=== PATIENT | male | born 1965 | race Caucasian/White ===

== ENCOUNTER 2018-01-25 00:48 | Emergency (ER) | payer SELFPAY ==
[~2018-01-25] VITALS: Ht 180.3 cm; Wt 106.6 kg
[2018-01-25 01:05] VITALS: BP_SYST 149
[2018-01-25] MEDS ORDERED: KETOROLAC TROMETHAMINE 60 MG/2 ML VIAL IM ONE (01:30)
[2018-01-25 01:50] VITALS: BP_SYST 141
== END 2018-01-25 01:50 | disposition home or self-care (01) ==
LOC: SED 00:48
DX: M25.511 Pain in right shoulder (principal); F17.210 Nicotine dependence, cigarettes, uncomplicated; Z88.0 Allergy status to penicillin; Z88.1 Allergy status to other antibiotic agents
CPT/HCPCS: 96372; 99283; J1885

== ENCOUNTER 2018-11-06 16:35 | Emergency (ER) | payer OTHER ==
[~2018-11-06] VITALS: Ht 177.8 cm; Wt 104.3 kg
[2018-11-06 16:48] VITALS: BP_SYST 129
--- NOTE | 2018-11-06 16:55 | NUR ---
Placed in room 6 . Placed on billet sawyer, blood pressure machine and pulse oximeter. To gown for exam. Side rails up. Report given to Mireya FERMIN.
[2018-11-06] MEDS ORDERED: NACL 0.9% 1,000 ML IV ONE ×2 (17:00→18:45)
--- NOTE | 2018-11-06 17:05 | NUR ---
Patient presented to ER with c/muscle crampling in chest. Patient A&Ox4, skin pink, respirations equal bilat, pain 4/10, denies N/V/D. Patient states he has muscle cramping chest, thigh, arms staarting yesterday, pt states he works in [place] in very high heat and may be suffering heat exhaustion. Patient states he drove from [place] today.
--- NOTE | 2018-11-06 17:15 | NUR ---
# 20 gauge angiocath placed to right ac . Use of asceptic technique. Opsite placed over site. Blood return noted. Blood for lab drawn from site. Flushed with 10 cc of normal saline. No evidence of infiltration noted. Patient tolerated well.
[2018-11-06 17:25] LABS: MEAN CORPUSCULAR VOLUME 92 fL (79.0-98.0)
--- NOTE | 2018-11-06 17:30 | NUR ---
Radiology at bedside for poertable x-ray
[2018-11-06 17:31] LABS: BASOPHILS # (AUTO) 0.1 K/uL (0.0-0.2); BASOPHILS % (AUTO) 0.9 % (0.0-2.0); EOSINOPHILS # (AUTO) 0.3 K/uL (0.0-0.4); EOSINOPHILS % (AUTO) 3.2 % (0.0-4.0); HEMATOCRIT 49.8 % (36-54); HEMOGLOBIN 17.4 g/dL (14.0-18.0); LYMPHOCYTES # (AUTO) 2.7 K/uL (1.0-5.5); LYMPHOCYTES % (AUTO) 33.1 % (20.5-51.5); MEAN CORPUSCULAR HEMOGLOBIN 32 pg (27-31); MEAN CORPUSCULAR HGB CONC 35 % (32-36); MONOCYTES # (AUTO) 0.7 K/uL (0.0-1.0); MONOCYTES % (AUTO) 8.8 % (1.7-9.3); NEUTROPHILS # (AUTO) 4.5 K/uL (1.8-7.7); PLATELET COUNT (AUTO) 278 K/uL (130-430); RED BLOOD CELL COUNT(AUTO) 5.41 MIL/uL (4.2-6.2); RED CELL DISTRIBUTION WIDTH 12.8 % (9.0-15.0); WHITE BLOOD COUNT (AUTO) 8.3 K/uL (4.8-10.8)
[2018-11-06 17:36] LABS: CREATININE 1.42 mg/dL (0.55-1.30); POTASSIUM 3.6 mmol/L (3.5-5.1)
[2018-11-06 17:41] LABS: ALBUMIN 4.9 g/dL (3.4-4.8); TOTAL BILIRUBIN 0.5 mg/dL (0.0-1.0)
[2018-11-06 18:08] LABS: CKMB RELATIVE INDEX 0.8 (0.0-2.9); CREATINE KINASE MB 5.5 ng/mL (0-3.6)
--- NOTE | 2018-11-06 18:25 | NUR ---
ER Dr. Goncalves at bedside examining patient.
--- NOTE | 2018-11-06 18:30 | NUR ---
Medicated per MD orders. IVF infusing with no s/s of infiltration at this time. Will cont to monitor
[2018-11-06 19:20] VITALS: BP_SYST 129
--- NOTE | 2018-11-06 19:20 | NUR ---
Patient given written and verbal discharge instructions and verbalizes understanding. ER MD discussed with patient the results and treatment provided. Patient in stable condition. ID arm band removed. IV catheter removed intact and dressing applied, no active bleeding. Rx of Motrin given. Patient educated on pain management and to follow up with PMD. Pain Scale 0/10. Opportunity for questions provided and answered. Medication side effect fact sheet provided.
== END 2018-11-06 19:20 | disposition home or self-care (01) ==
LOC: SED 16:35
DX: E86.0 Dehydration (principal); N17.9 Acute kidney failure, unspecified; J45.909 Unspecified asthma, uncomplicated; F17.210 Nicotine dependence, cigarettes, uncomplicated; R03.0 Elevated blood-pressure reading, without diagnosis of hypertension; Z88.0 Allergy status to penicillin; Z88.1 Allergy status to other antibiotic agents
CPT/HCPCS: 36415; 71045; 80053; 81002; 82550; 82553; 84484; 85025; 93005; 96360; 96361; 99284; J7030

== ENCOUNTER 2020-01-16 12:59 | Emergency (ER) | payer OTHER ==
[~2020-01-16] VITALS: Ht 175.3 cm; Wt 110.2 kg
[2020-01-16 13:08] VITALS: BP_SYST 154
--- NOTE | 2020-01-16 13:13 | NUR ---
Patient to ER bed 7 to gown for evaluation. Side rails up. Report given to ZANDER Chahal.
--- NOTE | 2020-01-16 13:14 | NUR ---
Patient came from home for evaluation of left flank pain and dark,foul urine. No other complaints at this time.
--- NOTE | 2020-01-16 13:15 | NUR ---
ER at bedside examining patient.
[2020-01-16] MEDS ORDERED: KETOROLAC TROMETHAMINE 60 MG/2 ML VIAL IM ONE (13:30)
[2020-01-16 13:50] LABS: BASOPHILS # (AUTO) 0.1 K/uL (0.0-0.2); BASOPHILS % (AUTO) 0.9 % (0.0-2.0); EOSINOPHILS # (AUTO) 0.3 K/uL (0.0-0.4); EOSINOPHILS % (AUTO) 3.4 % (0.0-4.0); HEMATOCRIT 44.6 % (36-54); HEMOGLOBIN 15.3 g/dL (14.0-18.0); LYMPHOCYTES % (AUTO) 26.3 % (20.5-51.5); MEAN CORPUSCULAR HEMOGLOBIN 31 pg (27-31); MEAN CORPUSCULAR HGB CONC 34 % (32-36); MEAN CORPUSCULAR VOLUME 91 fL (79.0-98.0); MONOCYTES # (AUTO) 0.5 K/uL (0.0-1.0); NEUTROPHILS # (AUTO) 4.9 K/uL (1.8-7.7); NEUTROPHILS % (AUTO) 63.4 % (40.0-70.0); PLATELET COUNT (AUTO) 213 K/uL (130-430); RED CELL DISTRIBUTION WIDTH 13.6 % (9.0-15.0); WHITE BLOOD COUNT (AUTO) 7.7 K/uL (4.8-10.8)
[2020-01-16 13:53] LABS: CALCIUM 9.9 mg/dL (8.4-11.0); CREATININE 1.03 mg/dL (0.55-1.30); POTASSIUM 4.4 mmol/L (3.5-5.1)
[2020-01-16 13:59] LABS: ALBUMIN 4.4 g/dL (3.4-4.8); TOTAL BILIRUBIN 0.5 mg/dL (0.0-1.0)
--- NOTE | 2020-01-16 15:25 | NUR ---
Patient given written and verbal discharge instructions and verbalizes understanding. ER MD discussed with patient the results and treatment provided. Patient in stable condition. ID arm band removed. Rx of Naproxen, Z-tarik and [place] given. Patient educated on pain management and to follow up with PMD. Pain Scale 0/10. Opportunity for questions provided and answered. Medication side effect fact sheet provided.
[2020-01-16 15:52] VITALS: BP_SYST 154
== END 2020-01-16 15:25 | disposition home or self-care (01) ==
LOC: SED 12:59
DX: M54.9 Dorsalgia, unspecified (principal); J45.909 Unspecified asthma, uncomplicated; Z88.0 Allergy status to penicillin; Z88.1 Allergy status to other antibiotic agents
CPT/HCPCS: 36415; 74176; 80053; 81002; 83690; 85025; 96372; 99284; J1885

== ENCOUNTER 2023-10-22 09:47 | Emergency (ER) | payer OTHER ==
[~2023-10-22] VITALS: Ht 177.8 cm; Wt 96.2 kg
[2023-10-22 09:47] VITALS: BP_SYST 159; PULSE 74; RESP 18; TEMP 97.6; O2SAT 96
[2023-10-22] MEDS: IPRATROPIUM/ALBUTEROL SULFATE 3 ML AMPUL.NEB (DUONEB) INH ONE (10:16)
[2023-10-22] MEDS ORDERED: D-ME120S28 PO (10:57)
[2023-10-22] MEDS ORDERED: NAPR-688 PO (10:58)
[2023-10-22] MEDS ORDERED: PRED50TA PO (10:58)
[2023-10-22 11:09] VITALS: BP_SYST 159; PULSE 74; RESP 18; TEMP 97.6; O2SAT 96
[2023-10-22] MEDS ORDERED: predniSONE 20 MG TABLET PO ONE (11:30)
[2023-10-22] MEDS ORDERED: NAPROXEN 250 MG TABLET PO SCH (21:00)
== END 2023-10-22 11:08 | disposition home or self-care (01) ==
LOC: SED 09:47
DX: J20.9 Acute bronchitis, unspecified (principal); R03.0 Elevated blood-pressure reading, without diagnosis of hypertension; J45.909 Unspecified asthma, uncomplicated; Z88.0 Allergy status to penicillin; Z88.1 Allergy status to other antibiotic agents; Z79.899 Other long term (current) drug therapy
CPT/HCPCS: 71045; 94640; 99283